=== PATIENT | male | born 1965 | race Caucasian/White ===

== ENCOUNTER 2019-09-12 08:49 | Emergency (ER) | payer OTHER ==
--- NOTE | 2019-09-12 09:32 | EDM.PDOC ---
ED HPI GENERAL MEDICAL PROBLEM - General Chief Complaint: Eye Problems Stated Complaint: EYE ISSUE/LT EYE Time Seen by Provider: 09/12/19 09:25 Source of Information: Reports: Patient, Family, RN Notes Reviewed History Limitations: Reports: No Limitations - History of Present Illness INITIAL COMMENTS - FREE TEXT/NARRATIVE: 53-year-old gentleman presents emergency department today with complaint of flashing lights in his left eye he is not experiencing pain initially had some blurry vision but that now has resolved he states he is at risk for retinal detachment and that is his concern - Related Data Allergies Allergy/AdvReac Type Severity Reaction Status Date / Time Penicillins Allergy Anaphylactic Verified 09/12/19 09:11 Shock Tetracyclines Allergy Abdominal Verified 09/12/19 09:11 Cramps Home Meds: Home Meds Simvastatin 10 mg PO DAILY 09/12/19 [History] Past Medical History - Infectious Disease History Infectious Disease History: Reports: Chicken Pox - Past Surgical History Musculoskeletal Surgical History: Reports: Other (See Below) Other Musculoskeletal Surgeries/Procedures:: acl and rotator cuff repair Social & Family History - Tobacco Use Smoking Status *Q: Never Smoker - Caffeine Use Caffeine Use: Reports: Tea - Recreational Drug Use Recreational Drug Use: No ED ROS GENERAL - Review of Systems Review Of Systems: See Below Constitutional: Reports: No Symptoms HEENT: Reports: Vision Change ED EXAM GENERAL W FULL EYE - Physical Exam Exam: See Below Exam Limited By: No Limitations Eye Exam: Bilateral Eye: EOMI, Normal Fundi, PERRL Visual Acuity (R) 20/: 15 Visual Acuity (L) 20/: 15 Eyelids: Bilateral: Normal Appearance Conjunctiva & Sclera: Bilateral: Normal Appearance Extraocular Movements: Bilateral: Intact Pupils: Normal Accommodation Pupillary Size: Bilateral: 4 mm Pupillary Reaction: Bilateral: Brisk Posterior Chamber: Left: Normal Funduscopic Course - Vital Signs Last Recorded V/S: Last Vital Signs Temp 96.4 F L 09/12/19 09:12 Pulse 75 09/12/19 09:12 Resp 16 09/12/19 09:12 BP 146/86 H 09/12/19 09:12 Pulse Ox 98 09/12/19 09:12 Departure - Departure Time of Disposition: 09:31 Disposition: Home, Self-Care 01 Condition: Fair Clinical Impression: Change in vision - Discharge Information Referrals: PCP,None [Primary Care Provider] - Additional Instructions: Please report to the [facility] on [address] for further evaluation Sepsis Event Note (ED) - Evaluation Sepsis Screening Result: No Definite Risk - Focused Exam Vital Signs: Vital Signs Temp Pulse Resp BP Pulse Ox 09/12/19 09:12 96.4 F L 75 16 146/86 H 98 - Assessment/Plan Plan: Assessment Acuity = acute Site and laterality = change in vision Etiology = unknown Manifestations = none Location of injury = Home Lab values = none Plan Call discussed case with Dr. Kaplan staff at [facility] they agreed to evaluate him after he is discharged from the emergency department he is transferred to the eye clinic
== END 2019-09-12 09:37 | disposition home or self-care (01) ==
LOC: JP.ED 08:49
DX: H53.9 Unspecified visual disturbance (principal); Z88.0 Allergy status to penicillin; Z88.1 Allergy status to other antibiotic agents
CPT/HCPCS: 99282; 99283